=== PATIENT | female | born 1975 | race Caucasian/White ===

== ENCOUNTER 2019-01-23 14:52 | Outpatient (REF) | payer OTHER, SELFPAY ==
--- NOTE | 2019-01-23 14:00 | PAPFT_PTH ---
PATIENT: Mely Gomes LOC: [facility] U#:[id number] AGE/SX: 43/F ROOM: RE01/23/[address]: Ignacia Ennis APRN : 1975 BED: DIS: 01/23/2019 SPEC #: [id number] RECD: 01/23/19 18:09 STATUS: STEFANIA REGertrude #: [id number] SUSANNAH: 01/23/19 14:[address]: Ignacia Ennis DEPT: [facility] Cytology RECD BY: Linda Almanza Tissues: 1 - CX/ENDOCX FOR PAP SMEARS Procedures: PAP THIN PREP/[facility] Screening HPV DNA PROBE Comments: [id number]
== END 2019-01-23 15:12 ==
LOC: LBN 14:52
PROVIDERS: PCP Nurse Practitioner Adult Health; Visit Provider Nurse Practitioner Adult Health
DX: Z12.4 Encounter for screening for malignant neoplasm of cervix (principal); Z11.51 Encounter for screening for human papillomavirus (HPV)
CPT/HCPCS: 88142; 87624

== ENCOUNTER 2023-11-22 11:39 | Outpatient (REF) | payer BC, SELFPAY ==
--- NOTE | 2023-11-22 10:15 | PAPFT_PTH ---
PATIENT: Mely Gomes LOC: [facility] U#:[id number] AGE/SX: 48/F ROOM: RE11/22/[address]: Ignacia Ennis APRN : 1975 BED: DIS: 11/22/2023 SPEC #: [id number] RECD: 11/22/23 15:23 STATUS: STEFANIA REGetrrude #: [id number] SUSANNAH: 11/22/23 10:[address]: Ignacia Ennis DEPT: [facility] Cytology RECD BY: Breonna Camacho Tissues: 1 - CX/ENDOCX FOR PAP SMEARS Procedures: PAP THIN PREP/[facility] Screening HPV DNA PROBE Comments: [id number] (HPV 16 & 18/45)
[2023-11-23 12:17] LABS: Chlamydia Result Negative (Negative); GC Result Negative (Negative)
== END 2023-11-22 11:40 | disposition home or self-care (01) ==
LOC: LBN 11:39
PROVIDERS: PCP Nurse Practitioner Adult Health; Visit Provider Nurse Practitioner Adult Health
DX: Z11.3 Encounter for screening for infections with a predominantly sexual mode of transmission (principal); E66.01 Morbid (severe) obesity due to excess calories; Z68.44 Body mass index [BMI] 60.0-69.9, adult; Z12.4 Encounter for screening for malignant neoplasm of cervix; G47.33 Obstructive sleep apnea (adult) (pediatric); Z99.89 Dependence on other enabling machines and devices
CPT/HCPCS: 87491; 87591; 88142; 87480; 87510; 87624; 87660